=== PATIENT | male | born 1985 ===

== ENCOUNTER → 2023-07-31 12:24 | Outpatient (CLI) | payer OTHER, SELFPAY | LOC: RESP 12:25 | PROVIDERS: PCP Family Medicine; Referring Provider Family Medicine; Visit Provider Family Medicine | DX: J44.9 Chronic obstructive pulmonary disease, unspecified (principal); Z72.0 Tobacco use | CPT/HCPCS: 94060; 94726; 94729 ==

== ENCOUNTER → 2025-05-03 13:40 | Outpatient (CLI) | payer SELFPAY | PROVIDERS: PCP Family Medicine; Visit Provider Physician Assistant | DX: R30.0 Dysuria (principal) | CPT/HCPCS: 87077; 87086; 87186 ==